=== PATIENT | female | born 1990 | race American Indian/Alaskan Native ===

== ENCOUNTER 2017-03-15 11:07 | Outpatient (CLI) | payer MEDICAID ==
[2017-03-15] MEDS ORDERED: ANTIVERT PO PRN (14:16)
[2017-03-15] MEDS ORDERED: LACTATED RINGERS 500 ML IV ONE (15:00)
[2017-03-15 15:08] LABS: Urine Drugs of Abuse Note Disclamer
[2017-03-15 15:38] LABS: Bacteria,Urine 1+ /HPF (Negative); Bilirubin,Urine NEG (Negative); Blood,Urine NEG (Negative); Ketones,Urine NEG (Negative); Leukocyte Esterase,Urine TR (Negative); Mucus,Urine 1+ /HPF; Nitrite,Urine NEG (Negative); Protein,Urine <15 mg/dL mg/dL (Negative); Urobilinogen,Urine < 2.0 mg/dL (<2.0)
[2017-03-15 15:42] VITALS: BP 99/60
== END 2017-03-15 15:59 | disposition home or self-care (01) ==
LOC: EDSTATUS 12:46 → TRG 12:48
PROVIDERS: ATTEND Obstetrics & Gynecology
DX: O47.03 False labor before 37 completed weeks of gestation, third trimester (principal); Z3A.30 30 weeks gestation of pregnancy
CPT/HCPCS: 59025; 80307; 81001

== ENCOUNTER 2017-06-01 04:31 | Inpatient (IN) | payer MEDICAID ==
[2017-06-01] MEDS ORDERED: SUBLIMAZE IV PRN (04:53)
[2017-06-01] MEDS ORDERED: XYLOCAINE 2% INFILTRATI ONE (04:53)
[2017-06-01] MEDS ORDERED: BRETHINE IVP PRN (04:53)
[2017-06-01] MEDS ORDERED: BRETHINE SUB-Q PRN (04:53)
[2017-06-01] MEDS ORDERED: ZOFRAN IV PRN (04:53)
[2017-06-01] MEDS ORDERED: ePHEDrine SULFATE IV PRN ×2 (04:53→08:00)
[2017-06-01] MEDS ORDERED: MINERAL OIL PO PRN (04:53)
[2017-06-01] MEDS: LACTATED RINGERS 1,000 ML IV SCH ×3 (05:00→07:09)
[2017-06-01] MEDS ORDERED: PITOCin/NS 20 UNIT/1000ML DRIP 20 UNITS/1,000 ML BAG IV SCH ×2 (05:00→11:56)
--- NOTE | 2017-06-01 05:43 | History and Physical Report ---
History of Present Illness Date of admission: 06/01/17 05:23 Chief complaint: contractions History of present illness: Presents in active labor. GBS negative. Menstrual History Regularity: regular Menses every: 28 days Duration: 4 LMP: 08/17/2016 LMP reliability: definite LMP character: normal test type: urine test Date: 01/21/2017 BC at conception: none Planned ? yes EDC Calculations LMP: 05/24/2017 EDC Confirmation: 05/24/2017 Gestational Age: 22 3/7 weeks Past History : 4 Term Births: 3 Living Children: 3 # 1 Delivery date: 2009 Weeks Gestation: 39 Delivery type: Delivery location: [facility] Sex: Female weight: 6-14 Comments: no complications # 2 Delivery date: 2012 Weeks Gestation: 40 Delivery type: Delivery location: [facility] Infant Sex: Female weight: 7-9 Comments: no complications # 3 Delivery date: 2014 Weeks Gestation: 41 Delivery type: Delivery location: [place] Infant Sex: Female weight: 7-2 Comments: no complications Past Medical History: Negative Past Medical History Past Surgical History: Tonsillectomy Past Medical History 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 of genital herpes: no Partner hx. of genital herpes: no Rash, Viral, or Febrile illness since last LMP? no Varicella/Chicken Pox Status: Previous Disease TB Risk: no Genetic History Congenital Heart Defect: Mom: no Dad: no Grace Disease: Mom: no Dad: no Thalassemia Mom: no Dad: no Neural Tube Defect Mom: no Dad: no Down's Syndrome Mom: no Dad: no Latrell-Sachs Mom: no Dad: no Sickle Cell Disease/Trait Mom: no Dad: no Hemophilia Mom: no Dad: no Muscular Dystrophy Mom: no Dad: no Cystic Fibrosis Mom: no Dad: no [place] Chorea Mom: no Dad: no Mental Retardation Mom: no Dad: no Fragile X Mom: no Dad: no Other Genetic/Chromosomal Disorder Mom: no Dad: no Child w/other defect Mom: no Dad: no Enviromental Exposures Enviromental Exposures Reviewed Xray Exposure: no Medication, drug, or alcohol use since LMP: no Chemical/Other Exposure: no Exposure to Cat Liter: no Hx of Parvovirus (Fifth Disease): no 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 Medications: None Current Allergies (reviewed today): No known allergies Past History Past Medical History: no pertinent history Past Surgical History: no surgical history LICENSED [employer]ENSE AGENTS History: denies: abnormal PAP smear Family/Genetic History: none Social history: no significant social history, single - Obstetrical History Expected Date of Delivery: 05/24/17 Actual Gestation: 41 Week(s) 1 Day(s) : 4 Para: 3 Number of Living Children: 3 Medications and Allergies Allergies Allergy/AdvReac Type Severity Reaction Status Date / Time No Known Allergies Allergy Verified 03/15/17 13:30 Active Meds: Active Medications Fentanyl (Sublimaze) 100 mcg IV Q2H PRN PRN Reason: Labor Pain Lactated Ringer's (Lactated Ringers) 1,000 mls @ 125 mls/hr IV DIRECT BLANCA Oxytocin/Sodium Chloride (Pitocin/Ns 20 Unit/1000ml Drip) 20 units in 1,000 mls @ 125 mls/hr IV DIRECT BLANCA Mineral Oil (Mineral Oil) 30 ml PO QHS PRN PRN Reason: Constipation Ondansetron HCl (Zofran) 4 mg IV Q8H PRN PRN Reason: Nausea And Vomiting Review of Systems All systems: negative - Vital Signs Vital signs: Vital Signs Pulse BP 84 117/75 06/01/17 04:36 06/01/17 04:36 Temp Pulse Resp BP Pulse Ox 84 117/75 06/01/17 04:36 06/01/17 04:36 - Physical Exam Cardiovascular: Normal S1, Normal S2 Lungs: Positive: Clear to auscultation, Normal air movement Abdomen: Positive: normal appearance, soft. Negative: distention, tenderness, guarding Genitourinary (Female): Positive: normal external genitalia, normal perenium Deep Tendon Reflex Grade: Normal +2 - Obstetrical FHR: auscultation normal Uterine Contraction Pattern: Regular Uterine Tone Measurement Phase: Resting Uterine Contraction Intensity: Moderate Results All other labs normal. Assessment and Plan - Patient Problems (1) 41 weeks gestation of Current Visit: Yes Status: Acute (2) Active labor at term Current Visit: Yes Status: Acute (3) Grand multipara in labor Current Visit: Yes Status: Acute Qualifiers: Trimester: T
[2017-06-01 05:51] LABS: Hematocrit 29.6 % (30.3-42.9); Hemoglobin 9.8 gm/dl (10.1-14.3); Mean Corpuscular HGB Conc 33 % (30-34); Mean Corpuscular Volume 71 fl (79-97); Platelet Count 182 K/mm3 (140-440); Red Blood Count 4.15 M/mm3 (3.65-5.03); Red Cell Distribution Width 16.4 % (13.2-15.2); White Blood Count 10.9 K/mm3 (4.5-11.0)
[2017-06-01 06:00] LABS: Mean Corpuscular Hemoglobin 24 pg (28-32)
--- NOTE | 2017-06-01 07:35 | Anesthesia Consultation ---
Anesthesia Consult and Med Hx Date of service: 06/01/17 - Airway Anesthetic Teeth Evaluation: Good ROM Head & Neck: Adequate Mental/Hyoid Distance: Adequate Mallampati Class: Class II Intubation Access Assessment: Probably Good - Pre-Operative Health Status ASA Pre-Surgery Classification: ASA2 Proposed Anesthetic Plan: Epidural, Spinal - Pulmonary Hx Asthma: No COPD: No Hx Pneumonia: No - Cardiovascular System Hx Hypertension: No - Central Nervous System Hx Seizures: No Hx Psychiatric Problems: No - Endocrine Hx Renal Disease: No Hx Hypothyroidism: No Hx Hyperthyroidism: No - Hematic Hx Anemia: No Hx Sickle Cell Disease: No - Other Systems Hx Alcohol Use: No
--- NOTE | 2017-06-01 07:41 | Progress Note ---
Assessment and Plan Patient doing well s/p epidural. AROM with patient's consent, clear fluid. Anticipate . - Patient Problems (1) Anemia affecting in third trimester Current Visit: Yes Status: Acute (2) 41 weeks gestation of Current Visit: Yes Status: Acute (3) Active labor at term Current Visit: Yes Status: Acute Subjective - Subjective Date of service: 06/01/17 Principal diagnosis: Labor @ term Patient reports: no new complaints (comfortable with epidural) Objective - Vital Signs Vital Signs: Vital Signs - 12hr 06/01/17 06/01/17 06/01/17 04:36 06:50 07:17 Temperature 98.1 F 97.6 F Pulse Rate 84 69 Pulse Rate [ 98 H From Monitor] Respiratory 18 18 Rate Blood Pressure 117/75 125/55 O2 Sat by Pulse 99 Oximetry 06/01/17 06/01/17 06/01/17 07:21 07:26 07:29 Temperature Pulse Rate 64 70 82 Pulse Rate [ From Monitor] Respiratory Rate Blood Pressure 119/70 O2 Sat by Pulse 100 99 Oximetry 06/01/17 06/01/17 06/01/17 07:30 07:32 07:34 Temperature Pulse Rate 75 80 64 Pulse Rate [ From Monitor] Respiratory Rate Blood Pressure 104/57 106/63 110/66 O2 Sat by Pulse 100 Oximetry - Exam Breasts: normal Cardiovascular: Regular rate Lungs: Clear to auscultation Abdomen: Present: normal appearance, soft Vulva: both: normal Uterus: Present: normal FHR: auscultation normal, category 1 Uterine Contraction Monitor Mode: External Cervical Dilatation: 9 (AROM - clear) Cervical Effacement Percentage: 90 station: -1 Uterine Contraction Pattern: Regular Uterine Tone Measurement Phase: Contraction Uterine Contraction Intensity: Moderate Extremities: normal Deep Tendon Reflex Grade: Normal +2 - Labs Labs: Abnormal Labs 06/01/17 05:30 Hgb 9.8 L Hct 29.6 L MCV 71 L MCH 24 L RDW 16.4 H Laboratory Results - last 24 hr 06/01/17 06/01/17 05:30 05:30 WBC 10.9 RBC 4.15 Hgb 9.8 L Hct 29.6 L MCV 71 L MCH 24 L MCHC 33 RDW 16.4 H Plt Count 182 Blood Type AB POSITIVE Antibody Screen TNR
[2017-06-01] MEDS ORDERED: fentaNYL-BUPIV 2 MCG/ML-0.125% 200 MCG/100 ML BAG EPIDURAL SCH (08:00)
[2017-06-01] MEDS ORDERED: NARCAN 2 MG/2 ML IV PRN (08:00)
[2017-06-01] MEDS ORDERED: PITOCin/NS 30 UNIT/500ML 30,000 MILLIUNITS/500 ML BAG IV ONE (08:19)
--- NOTE | 2017-06-01 08:53 | Procedure Note ---
OB Delivery Note - Delivery Date of Delivery: 06/01/17 ( male) Oil Burner: SHEBA RAMOS Estimated blood loss: 300cc - Vaginal Delivery presentation: vertex Delivery position: OA Intrapartum events: none Delivery induction: none Delivery augmentation: rupture of membranes Delivery monitor: external FHT, external uterine Route of delivery: Delivery placenta: spontaneous Delivery cord: 3 umbilical vessels Episiotomy: none Delivery laceration: none Anesthesia: epidural Delivery comments: male infant del over intact perineum, YORDAN. Infant placed skin to skin on mother 's abdomen. 3 vessel cord clamped and cut. Placenta del intact and complete. No lacerations. Pit to IVF. EBL 300. Apgars 8/9, weight 6#11. Mother and remain LDR stable. - Infant A at 1 minute: 8 at 5 minutes: 9 Gender: Male (6#11)
[2017-06-01] MEDS ORDERED: LANSINOH TP PRN (11:56)
[2017-06-01] MEDS ORDERED: PRENATAL VITAMIN PO SCH ×2 (11:56→20:00)
[2017-06-01] MEDS ORDERED: TYLENOL PO PRN (11:56)
[2017-06-01] MEDS ORDERED: PHENERGAN PO PRN (11:56)
[2017-06-01] MEDS ORDERED: DULCOLAX PR PRN (11:56)
[2017-06-01] MEDS ORDERED: MILK OF MAGNESIA PO PRN (11:56)
[2017-06-01] MEDS ORDERED: NORCO 5/325 PO PRN (11:56)
[2017-06-01] MEDS ORDERED: TUCKS PAD TP PRN (11:56)
[2017-06-01] MEDS ORDERED: BENADRYL PO PRN (11:56)
[2017-06-01] MEDS ORDERED: SODIUM CHLORIDE FLUSH SYRINGE 10 ML IV NR (11:56)
[2017-06-01] MEDS: MOTRIN PO SCH (15:30)
[2017-06-01] MEDS: FEOSOL PO SCH (15:32)
[2017-06-01 21:40] LABS: Hematocrit 29.2 % (30.3-42.9); Hemoglobin 9.6 gm/dl (10.1-14.3)
[2017-06-02] MEDS: MOTRIN PO SCH ×3 (00:11→11:14)
--- NOTE | 2017-06-02 08:19 | Progress Note ---
Assessment and Plan patient doing well, no complaints. desires d/c home today. Sharri scant, VSSAF , H&H 9.6/29.2 (preexisting anemia, asymptomatic), without concern. Plan for d/c home w/ routine f/u in office. - Patient Problems (1) Anemia affecting in third trimester Current Visit: Yes Status: Acute (2) 41 weeks gestation of Current Visit: No Status: Resolved (3) Active labor at term Current Visit: No Status: Resolved (4) (normal spontaneous vaginal delivery) Onset Date: 06/01/17 Current Visit: Yes Status: Acute Subjective - Subjective Date of service: 06/02/17 Principal diagnosis: day #1 s/p Patient reports: appetite normal, voiding normally, pain well controlled, ambulating normally, no dizzy ambulation, no nauseated : doing well, nursing well Objective - Vital Signs Latest vital signs: Vital Signs Temp Pulse Pulse Pulse Resp BP BP 06/02/17 05:35 16 06/02/17 00:00 98.9 F 76 18 06/01/17 16:35 99.0 F 84 18 06/01/17 12:08 98 F 65 20 106/61 06/01/17 11:14 58 L 102/66 06/01/17 11:09 61 06/01/17 11:05 58 L 06/01/17 11:00 59 L 06/01/17 10:59 56 L 100/65 06/01/17 10:55 65 06/01/17 10:50 62 06/01/17 10:45 59 L 94/58 06/01/17 10:44 59 L 82/63 06/01/17 10:40 72 06/01/17 10:35 62 06/01/17 10:30 66 104/58 06/01/17 10:25 65 06/01/17 10:20 70 06/01/17 10:15 86 06/01/17 10:14 61 93/51 06/01/17 10:10 61 06/01/17 10:05 63 06/01/17 10:00 58 L 06/01/17 09:59 68 96/60 06/01/17 09:55 77 06/01/17 09:50 64 06/01/17 09:45 64 06/01/17 09:44 73 93/52 18/17 09:40 98.0 F 63 64 18 93/52 18/17 09:35 67 0718/17 09:32 68 94/54 18/17 09:30 63 0718/17 09:29 67 89/54 18/17 09:25 98.0 F 66 63 18 94/54 18/17 09:20 63 06/01/17 09:15 62 18/17 09:14 63 94/53 18/17 09:10 98.0 F 75 71 18 94/53 18/17 09:05 71 06/01/17 09:00 69 17 08:59 64 96/52 06/01/17 08:55 77 06/01/17 08:51 98.0 F 70 70 18 91/59 91/59 18/17 08:50 78 17 08:37 40 L 06/01/17 08:32 55 L 119/58 17 08:29 107 H 06/01/17 08:27 73 136/89 17 08:22 83 17 08:17 60 100/58 BP Pulse Ox 06/02/17 05:35 06/02/17 00:00 116/73 06/01/17 16:35 100/68 17 12:08 17 11:14 17 11:09 99 1817 11:05 99 17 11:00 99 17 10:59 17 10:55 99 18/17 10:50 99 18/17 10:45 99 18/17 10:44 18/17 10:40 99 18/17 10:35 100 18/17 10:30 99 18/17 10:25 99 18/17 10:20 100 18/17 10:15 99 18/17 10:14 18/17 10:10 99 18/17 10:05 99 18/17 10:00 99 1817 09:59 06/01/17 09:55 99 06/01/17 09:50 98 06/01/17 09:45 98 06/01/17 09:44 06/01/17 09:40 98 06/01/17 09:35 98 06/01/17 09:32 06/01/17 09:30 98 06/01/17 09:29 06/01/17 09:25 98 06/01/17 09:20 98 06/01/17 09:15 98 06/01/17 09:14 06/01/17 09:10 98 06/01/17 09:05 98 06/01/17 09:00 98 06/01/17 08:59 06/01/17 08:55 98 06/01/17 08:51 98 06/01/17 08:50 98 06/01/17 08:37 81 L 06/01/17 08:32 100 06/01/17 08:29 65 L 06/01/17 08:27 100 06/01/17 08:22 100 06/01/17 08:17 99 Intake and Output 06/01/17 06/02/17 06/02/17 22:59 06:59 14:59 Intake Total 200 Balance 200 Intake: Oral 200 Other: Total, Intake Amount 200 # Voids Void 1 1 - Exam Breasts: Present: normal, Cardiovascular: Present: Regular rate Lungs: Present: Clear to auscultation, Normal air movement Abdomen: Present: normal appearance, soft Vulva: both: normal Uterus: Present: normal, firm, fundal height at umbilicus Extremities: Present: normal Deep Tendon Reflex Grade: Normal +2 - Labs Labs: Abnormal lab results 06/01/17 Range/Units 21:13 Hgb 9.6 L (10.1-14.3) gm/dl Hct 29.2 L (30.3-42.9) %
--- NOTE | 2017-06-02 08:25 | Discharge Summary ---
Providers - Providers Date of Admission: 06/01/17 05:23 Date of discharge: 06/02/17 (desires d/c home) Attending physician: TOÑO BAIG 06/01/17 11:56 Consult to Aircraft [employer]als[employer] [CONS] Routine Reason For Exam: assistance with , SNS Primary care physician: TOÑO BAIG Hospitalization Reason for admission: active labor Delivery: Episiotomy: none Laceration: none Other procedures: none complications: none Discharge diagnosis: IUP at term delivered baby: male Hospital course: uncomplicated vaginal Condition at discharge: Good Disposition: DC-01 TO HOME OR SELFCARE - Discharge Diagnoses (1) Anemia affecting in third trimester Status: Acute (2) (normal spontaneous vaginal delivery) Status: Acute Plan - Discharge Medications Prescriptions: Ferrous Sulfate [Feosol 325 MG tab] 325 mg PO BID #90 tablet Ibuprofen [Motrin 800 MG tab] 800 mg PO Q8HR PRN #30 tablet PRN Reason: Pain Lidocain2.5%/Prilocai2.5% [Emla] 5 gm TP ONCE PRN #1 tube PRN Reason: Pain - Provider Discharge Summary Activity: routine, no sex for 6 weeks, no heavy lifting 4 weeks, no strenuous exercise Diet: routine Instructions: routine Additional instructions: [] Smoking cessation referral if applicable(refer to patient education folder for contact #) [] Refer to [facility] Booklet Call your doctor immediately for: * Fever > 100.5 * Heavy vaginal bleeding ( >1 pad per hour) * Severe persistent headache * Shortness of breath * Reddened, hot, painful area to leg or breast * Drainage or odor from incision. * Keep incision clean and dry at all times and follow doctor's instructions regarding bathing/showering - Follow up plan Follow up: TOÑO BAIG MD [Primary Care Provider] - 7 Days (Congratulations! Please call [phone] to schedule your son's circumcision in 1 week and your visit in 4 weeks. Bring EMLA cream with yout o your son's appointment and await further instrutions. Call for any questions or concerns. )
[2017-06-02] MEDS ORDERED: BOOSTRIX IM ONE (08:53)
[2017-06-02] MEDS: FEOSOL PO SCH (11:14)
--- NOTE | 2017-06-02 14:45 | Progress Note ---
Subjective Date of service: 06/02/17 Principal diagnosis: day #1 s/p Interval history: 1st day after normal vaginal delivery Patient is in the bed, relatively comfortable. Pain is well controlled with pain meds. Ambulated well. No residual neurological deficit. No pruritus. No anesthesia complications Objective - Constitutional Vitals: Vital Signs - 12hr 06/02/17 06/02/17 06/02/17 05:35 07:00 11:00 Temperature 99.9 F H 98.8 F Pulse Rate [ 68 77 Right Radial] Respiratory 16 18 18 Rate Blood Pressure 102/66 126/74 [Right Arm] - Labs CBC & Chem 7: 06/01/17 21:13 Labs: Abnormal lab results 06/01/17 Range/Units 21:13 Hgb 9.6 L (10.1-14.3) gm/dl Hct 29.2 L (30.3-42.9) %
[2017-06-02 15:15] VITALS: BP 135/76
== END 2017-06-02 16:00 | disposition home or self-care (01) | DRG 775 ==
LOC: TRG 04:31 → LD 05:23 → UNDOADMIN 05:23 → LD 08:36 → UNDOADMIN 08:36 → OB 11:47
PROVIDERS: ADMIT Obstetrics & Gynecology; ATTEND Obstetrics & Gynecology
PROC: 10E0XZZ Delivery of Products of Conception, External Approach (ICD-10-PCS; principal; 2017-06-01)
PROC: 00HU33Z Insertion of Infusion Device into Spinal Canal, Percutaneous Approach (ICD-10-PCS; 2017-06-01)
PROC: 3E0R3CZ (ICD-10-PCS; 2017-06-01)
PROC: 10907ZC Drainage of Amniotic Fluid, Therapeutic from Products of Conception, Via Natural or Artificial Opening (ICD-10-PCS; 2017-06-01)
DX: O99.02 Anemia complicating childbirth (principal); D64.9 Anemia, unspecified; Z3A.41 41 weeks gestation of pregnancy; Z37.0 Single live birth
CPT/HCPCS: 36415; 85014; 85018; 85027; 86592; 86850; 86900; 86901; 99211; G0463; J2590; J3010; J7120